=== PATIENT | male | born 1985 | race Caucasian/White ===

== ENCOUNTER 2025-07-31 19:10 | Emergency (ER) | payer MEDICAID | END 2025-07-31 20:15 | disposition home or self-care (01) | LOC: JP.ED 19:10 | DX: S06.0XAA Concussion with loss of consciousness status unknown, initial encounter (principal); H11.32 Conjunctival hemorrhage, left eye; F17.210 Nicotine dependence, cigarettes, uncomplicated; W01.198A Fall on same level from slipping, tripping and stumbling with subsequent striking against other object, initial encounter | CPT/HCPCS: 99283 ==